=== PATIENT | female | born 1990 ===

== ENCOUNTER 2018-08-07 10:46 | Emergency (ER) | payer SELFPAY ==
--- NOTE | 2018-08-07 11:31 | UC ---
Skin Complaint HPI - HPI Summary HPI Summary: 27 yo female presents with rash to right arm and right thigh that she noticed 2 days ago. Has since blistered and has some clear drainage at some of the sites. No new soaps/detergents or clothing. Unsure if she came into contact with anything, but was not outdoors or hiking. Sites are itchy, but not painful. Denies fever, chills, difficulty breathing, or recent illness. - History of Current Complaint Chief Complaint: UCRash Stated Complaint: SKIN COMPLAINT Hx Obtained From: Patient Hx Last Menstrual Period: 07/07/18 Current Severity: None Pain Intensity: 1 - Allergy/Home Medications Allergies/Adverse Reactions: Allergies Allergy/AdvReac Type Severity Reaction Status Date / Time No Known Allergies Allergy Verified 08/07/18 11:25 Home Medications: Home Medications Cetirizine HCl [Zyrtec] 1 tab PO ONCE PRN 08/07/18 [History Confirmed 08/07/18] Norethindrone AC-Eth Estradiol [Microgestin 21 1.5-30 Tab] 1 tab PO DAILY [History Confirmed 08/07/18] Review of Systems Constitutional: Negative Skin: Rash Respiratory: Negative Cardiovascular: Negative Neurovascular: Negative Neurological: Negative Psychological: Negative All Other Systems Reviewed And Are Negative: Yes PMH/Surg Hx/FS Hx/Imm Hx - Additional Past Medical History Additional PMH: Seasonal allergies - Surgical History Surgical History: Yes Surgery Procedure, Year, and Place: tonsils and adenoid removal - Family History Known Family History: Positive: None - Social History Occupation: Employed Full-time Lives: With Family Alcohol Use: Daily Substance Use Type: None Smoking Status (MU): Never Smoked Tobacco Physical Exam - Summary Physical Exam Summary: GENERAL: NAD. WDWN. No pain distress. SKIN: Right arm with four sites of 1.0cm cluster of blisters on erythematous bases with scant clear drainage. Similar appearing lesions on right anterior thigh. NTTP. No streaking or warmth. NECK: Supple. Nontender. No lymphadenopathy. CHEST: No accessory muscle use. Breathing comfortably and in no distress. CV: Pulses intact. Cap refill <2seconds NEURO: Alert. PSYCH: Age appropriate behavior. Triage Information Reviewed: Yes Vital Signs: Initial Vital Signs Temp 98.0 F 08/07/18 11:21 Pulse 100 08/07/18 11:21 Resp 18 08/07/18 11:21 BP 135/88 08/07/18 11:21 Pulse Ox 100 08/07/18 11:21 Vital Signs Reviewed: Yes Course/Dx - Course Course Of Treatment: These lesions appear to be viral/herpetic in nature, therefore will start her with acyclovir and have her f/u if her symptoms persist , worsen, or if they show signs of infection. - Diagnoses Provider Diagnoses: Herpes rash Discharge - Sign-Out/Discharge Documenting (check all that apply): Patient Departure All imaging exams completed and their final reports reviewed: No Studies - Discharge Plan Condition: Stable Disposition: HOME Prescriptions: Acyclovir [Zovirax] 400 mg PO TID #21 tab Triamcinolone 0.1% CREAM(NF) [Kenalog Cream 0.1%(NF)] 1 applic TOPICAL BID #1 tube Patient Education Materials: Shingles (ED) Referrals: No Primary Care Phys,NOPCP [Primary Care Provider] - Additional Instructions: If you develop a fever, shortness of breath, chest pain, new or worsening symptoms - please call your PCP or go to the ED. Your blood pressure was high at todays visit. Please see your primary provider within 4 weeks for recheck and re-evaluation. 1) Keep areas covered until well healed. - Billing Disposition and Condition Condition: STABLE Disposition: Home - Attestation Statements Provider Attestation: Per institutional requirements, I have reviewed the chart, however, I was not consulted specifically or made aware of this patient by the midlevel provider. I did not personally evaluate, interact with , or disposition this patient.
== END 2018-08-07 11:46 | disposition home or self-care (01) ==
LOC: UCEAST 10:46
DX: B00.1 Herpesviral vesicular dermatitis (principal)
CPT/HCPCS: 99202; G0463